=== PATIENT | male | born 1970 | race Asian ===

== ENCOUNTER 2020-10-16 22:19 | Emergency (ER) | payer OTHER ==
[~2020-10-16] VITALS: Ht 167.6 cm; Wt 72.6 kg
[2020-10-16 23:49] LABS: BASOPHILS % 0.4 % (0.0-1.0); EOSINOPHILS # (AUTO) 0.2 (0.0-0.4); EOSINOPHILS % 2.3 % (0.0-6.0); HEMATOCRIT 41.9 % (38.2-49.6); HEMOGLOBIN 13.6 g/dL (14.0-18.0); LYMPHOCYTES # (AUTO) 1.7 (1.0-3.2); LYMPHOCYTES % 17.7 % (18.0-39.1); MEAN CORPUSCULAR HEMOGLOBIN 31.5 pg (28-32); MEAN CORPUSCULAR HGB CONC 32.5 g/dL (31-35); NEUTROPHILS # (AUTO) 6.8 (2.1-6.9); NEUTROPHILS % 69.2 % (38.7-80.0); PLATELET COUNT 254 x10e3/uL (140-360); RED BLOOD COUNT 4.32 x10e6/uL (4.3-5.7); RED CELL DISTRIBUTION WIDTH 12.1 % (11.7-14.4)
[2020-10-17 00:09] LABS: ALANINE AMINOTRANSFERASE 29 IU/L (0-55); ALBUMIN 3.8 g/dL (3.5-5.0); ALBUMIN/GLOBULIN RATIO 1.1 (0.8-2.0); ALKALINE PHOSPHATASE 65 IU/L (40-150); BLOOD UREA NITROGEN 21 mg/dL (7-26); BUN/CREATININE RATIO 19 (6-25); CALCIUM 9.2 mg/dL (8.4-10.2); CARBON DIOXIDE 26 mmol/L (22-29); CHLORIDE 108 mmol/L (98-107); CREATININE, SERUM 1.11 mg/dL (0.72-1.25); EST GLOMERULAR FILTRATION RATE > 60 ML/MIN (60-); GLUCOSE 105 mg/dL (74-118); SODIUM 144 mmol/L (136-145)
[2020-10-17] MEDS ORDERED: ULTRAM 50MG50 MG PO (00:38)
[2020-10-17] MEDS ORDERED: CLINDAMYCIN HC150 MG PO (00:38)
[2020-10-17] MEDS ORDERED: HYDROCODONE/APAP 10MG-325MG TAB PO ONE (00:45)
[2020-10-17] MEDS ORDERED: HYDROCODONE/APAP 10MG-325MG TAB ONE (00:52)
== END 2020-10-17 00:57 | disposition home or self-care (01) ==
LOC: ER 23:18
DX: M79.671 Pain in right foot (principal); L03.115 Cellulitis of right lower limb; R19.7 Diarrhea, unspecified
CPT/HCPCS: 36415; 80053; 85025; 99283